=== PATIENT | female | born 1940 | race Hispanic/Latino ===

== ENCOUNTER → 2017-05-25 | Outpatient (CLI) | payer MEDICARE | END | disposition home or self-care (01) | LOC: RAH 08:39 | PROVIDERS: ATTEND Family Medicine | DX: N28.1 Cyst of kidney, acquired (principal); K83.8 Other specified diseases of biliary tract | CPT/HCPCS: 76700; 76856 ==

== ENCOUNTER → 2017-06-11 | Outpatient (CLI) | payer MEDICARE | END | disposition home or self-care (01) | LOC: RAH 11:02 | PROVIDERS: ATTEND Family Medicine | DX: K83.1 Obstruction of bile duct (principal) | CPT/HCPCS: 74181 ==

== ENCOUNTER → 2017-12-24 | Outpatient (CLI) | payer MEDICARE ==
[~2017-12-24] VITALS: Ht 162.6 cm; Wt 82.6 kg
[~2017-12-24] MED LIST: REGADENOSON 0.4 MG/5 ML PF SYG IVP SCH
== END | disposition home or self-care (01) ==
LOC: SHCH 07:47
PROVIDERS: ATTEND Internal Medicine Cardiovascular Disease
DX: R07.9 Chest pain, unspecified (principal); I20.9 Angina pectoris, unspecified
CPT/HCPCS: 78452; 93017; 96374; A9500 ×2; J2785

== ENCOUNTER → 2017-12-28 | Outpatient (CLI) | payer MEDICARE | END | disposition home or self-care (01) | LOC: SHCH 13:30 | PROVIDERS: ATTEND Internal Medicine Cardiovascular Disease | DX: R06.09 Other forms of dyspnea (principal) | CPT/HCPCS: 93306 ==

== ENCOUNTER → 2020-09-01 | Outpatient (CLI) | payer MEDICARE | END | disposition home or self-care (01) | LOC: SHCH 08:48 | PROVIDERS: ATTEND Internal Medicine Cardiovascular Disease | DX: I25.118 Atherosclerotic heart disease of native coronary artery with other forms of angina pectoris (principal) | CPT/HCPCS: 93306; 93356 ==

== ENCOUNTER → 2020-09-03 | Outpatient (CLI) | payer MEDICARE ==
[~2020-09-03] VITALS: Ht 162.6 cm; Wt 65.8 kg
== END | disposition home or self-care (01) ==
LOC: SHCH 08:08
PROVIDERS: ATTEND Internal Medicine Cardiovascular Disease
DX: I25.118 Atherosclerotic heart disease of native coronary artery with other forms of angina pectoris (principal)
CPT/HCPCS: 78452; 93017; 96374; A9500 ×2; J2785

== ENCOUNTER → 2022-05-22 | Outpatient (CLI) | payer MEDICARE | END | disposition home or self-care (01) | LOC: RAH 13:51 | PROVIDERS: ATTEND Family Medicine | DX: E04.2 Nontoxic multinodular goiter (principal) | CPT/HCPCS: 76536 ==

== ENCOUNTER → 2022-08-29 | Outpatient (CLI) | payer MEDICARE | END | disposition home or self-care (01) | LOC: RAH 14:31 | PROVIDERS: ATTEND Family Medicine | DX: E04.9 Nontoxic goiter, unspecified (principal); E04.1 Nontoxic single thyroid nodule | CPT/HCPCS: 76536 ==

== ENCOUNTER → 2023-10-02 | Outpatient (CLI) | payer MEDICARE ==
[~2023-10-02] MED LIST changes: +DONE10TA43 PO; +METO-408 PO; +RAMI2.5C57 PO; -REGADENOSON 0.4 MG/5 ML PF SYG IVP SCH; +SOLI10TA7 PO
== END | disposition home or self-care (01) ==
LOC: RAH 13:50
PROVIDERS: ATTEND Family Medicine
DX: E04.2 Nontoxic multinodular goiter (principal)
CPT/HCPCS: 76536

== ENCOUNTER 2023-10-04 05:56 | Day surgery (SDC) | payer MEDICARE ==
[2023-10-01 10:42] VITALS: BP 141/61; PULSE 50; RESP 16
[2023-10-01 10:44] LABS: BASOPHILS # (AUTO) 0.04 K/uL (0.00-0.20); BASOPHILS % (AUTO) 0.7 % (0.0-5.0); EOSINOPHILS # (AUTO) 0.17 K/uL (0.00-0.70); EOSINOPHILS % (AUTO) 2.8 % (0.0-8.0); HEMATOCRIT 38.9 % (36-48); IMMATURE GRANULOCYTE ABSOLUTE 0.03 K/uL (0-1); LYMPHOCYTES # (AUTO) 1.2 K/uL (1.0-4.8); LYMPHOCYTES % (AUTO) 20.6 % (21.0-51.0); MEAN CORPUSCULAR HEMOGLOBIN 32.2 pg (27.0-33.0); MEAN CORPUSCULAR HGB CONC 32.6 g/dL (32.0-36.0); MEAN CORPUSCULAR VOLUME 98.5 fL (79-99); MONOCYTES # (AUTO) 0.7 K/uL (0.1-1.0); MONOCYTES % (AUTO) 11.1 % (3.0-13.0); NEUTROPHILS # (AUTO) 3.9 K/uL (1.8-7.7); NEUTROPHILS % (AUTO) 64.3 % (40.0-77.0); PLATELET COUNT (AUTO) 198 K/uL (130-400); RED BLOOD CELL COUNT(AUTO) 3.95 MIL/uL (4.00-5.50); RED CELL DISTRIBUTION WIDTH 13.3 % (11.0-15.5)
[2023-10-01 10:47] LABS: APPEARANCE,URINE CLEAR (CLEAR); BILIRUBIN,URINE NEGATIVE (NEGATIVE); COLOR,URINE LIGHT-YELLOW (YELLOW); GLUCOSE, URINE (UA) NEGATIVE (NEGATIVE); KETONES,URINE NEGATIVE (NEGATIVE); LEUKOCYTE ESTERASE ,URINE 250 Leu/uL (NEGATIVE); NITRATE,URINE NEGATIVE (NEGATIVE); PH,URINE 5.5 (5.0-8.0); PROTEIN,URINE NEGATIVE (NEGATIVE); UROBILINOGEN,URINE 0.2 mg/dL (0.2-1.0)
[2023-10-01 10:48] LABS: ADD UA MICROSCOPIC YES
[2023-10-01 10:51] LABS: CREATININE 1.2 mg/dL (0.5-1.0); POTASSIUM 5.1 mmol/L (3.5-5.1)
[2023-10-01 10:52] LABS: BACTERIA,URINE RARE /HPF (None Seen); MUCUS,URINE RARE LPF (None Seen); SQUAMOUS EPITHELIAL CELL,UR RARE /HPF (0-2)
[2023-10-01 10:58] LABS: INR 1.01 (0.85-1.15); PROTHROMBIN TIME 10.9 SEC (9.6-11.6)
[2023-10-01 10:59] LABS: PARTIAL THROMBOPLASTIN TIME 26.7 SEC (26.3-35.5)
[2023-10-01 11:03] LABS: B-TYPE NATRIURETIC PEPTIDE 91 pg/mL (0-100)
[~2023-10-04] VITALS: Ht 154.9 cm; Wt 69.7 kg
[2023-10-04] VITALS (9 sets, daily range): BP systolic 129–158; BP diastolic 45–67; PULSE 47–58; RESP 12–18
[2023-10-04] MEDS: 0.9%NACL 1000ML 1,000 ML IV ONE (07:07)
[2023-10-04] MEDS ORDERED: IOHEXOL 350 MG/ML 100ML INFUS..BTL IV ONE (07:13)
[2023-10-04] MEDS ORDERED: LIDOCAINE HCL 400MG/20ML VIAL ONE (07:13)
[2023-10-04] MEDS ORDERED: BIVALIRUDIN 250 MG/VIAL IV ONE (07:13)
[2023-10-04] MEDS ORDERED: HEPARIN 10,000 UNIT/10ML (1,000 UNIT/ML) VIAL ONE (07:13)
[2023-10-04] MEDS ORDERED: NITROGLYCERIN 50MG VIAL ONE (07:14)
[2023-10-04] MEDS ORDERED: FENTANYL CITRATE PF 50 MCG/1 ML 2ML VIAL ONE (07:36)
[2023-10-04] MEDS ORDERED: MIDAZOLAM HCL 1 MG/ML 2ML VIAL ONE (07:36)
[2023-10-04] MEDS ORDERED: IOHEXOL-350 75 ML VIAL IV ONE (07:47)
[2023-10-04] MEDS ORDERED: GLUCAGON 1MG KIT 1 MG ML IM PRN (08:30)
[2023-10-04] MEDS ORDERED: DEXTROSE 50%-WATER 50 ML DISP.SYRIN IV PRN (08:30)
== END 2023-10-04 12:20 | disposition home or self-care (01) ==
LOC: DAH 05:56
PROVIDERS: ATTEND Internal Medicine Cardiovascular Disease
DX: I25.118 Atherosclerotic heart disease of native coronary artery with other forms of angina pectoris (principal); I34.0 Nonrheumatic mitral (valve) insufficiency; I10 Essential (primary) hypertension; F32.A Depression, unspecified; E78.5 Hyperlipidemia, unspecified; I77.9 Disorder of arteries and arterioles, unspecified; R01.1 Cardiac murmur, unspecified; Z79.01 Long term (current) use of anticoagulants; Z79.82 Long term (current) use of aspirin; Z79.899 Other long term (current) drug therapy
CPT/HCPCS: 80048; 83880; 85025; 85610; 85730; 87086; 81001; 36415; 71045; 93005; 93460; C1894 ×3; C1760 ×2; J3010; J3490 ×2; J7030; J1644 ×2; J2250; Q9967 ×2; A4215; A4222; A4221; A4663; A4216; A4606; A4223 ×3; 99156; 99157; J0583

== ENCOUNTER 2023-12-22 07:51 | Emergency (ER) | payer MEDICARE ==
[~2023-12-22] VITALS: Ht 165.1 cm; Wt 69.9 kg
[2023-12-22 07:58] VITALS: TEMP 97.4
[2023-12-22] MEDS: ketOROlac 15MG/ML VIAL (15MG/ML) IM ONE (08:39)
[2023-12-22] MEDS ORDERED: NAPR-1196 PO (09:19)
[2023-12-22 10:45] VITALS: BP 169/65; PULSE 68; RESP 17; O2SAT 99
== END 2023-12-22 10:20 | disposition home or self-care (01) ==
LOC: EDH 07:51
DX: S52.134A Nondisplaced fracture of neck of right radius, initial encounter for closed fracture (principal); Z79.899 Other long term (current) drug therapy; W18.39XA Other fall on same level, initial encounter; Y93.89 Activity, other specified; Y92.89 Other specified places as the place of occurrence of the external cause; Y99.8 Other external cause status
CPT/HCPCS: 99284; 29105; 73070; 96372; J1885

== ENCOUNTER → 2024-04-08 | Emergency (ER) | payer MEDICARE ==
[~2024-04-08] VITALS: Ht 165.1 cm; Wt 72.6 kg
[~2024-04-08] MED LIST changes: +NAPR-1196 PO
--- NOTE | 2024-04-08 15:21 | ERN ---
ED Note History of Present Illness Stated Complaint: PAIN ON LEFT SIDE WAIST Chief Complaint: Flank Pain Time Seen by MD: 14:43 Dictation: PATIENT IS A 83-YEAR-OLD FEMALE HERE WITH LEFT LUMBAR PAIN SHE HAS HAD FOR 3-4 DAYS. NO FEVER NO CHILLS NO NAUSEA VOMITING NO REFERRED PAIN DOWN HER LEG OR TO HER LOWER ABDOMEN. DENIES ANY HISTORY OF KIDNEY STONES BACK INJURIES OR SURGERIES. SHE STATES THE PAIN HAS BEEN LOCALIZED TO THE LUMBAR SPINE SINCE AND IS ABLE TO PINPOINT. Allergies: Coded Allergies: No Known Drug Allergies (Unverified Allergy, Unknown, 12/21/17) Home Meds Active Scripts Naproxen (Naproxen) 250 Mg Tablet, 1 TAB PO BID for pain for 15 Days, #30 TAB 0 Refills Prov:LETI GALLOWAY MD 12/22/23 Reported Medications Metoprolol Succinate (Metoprolol Succinate) 25 Mg Tab.er.24h, 1 TAB PO DAILY 10/02/23 Donepezil HCl (Donepezil HCl) 10 Mg Tablet, 1 TAB PO DAILY 10/02/23 Solifenacin Succinate (Solifenacin Succinate) 10 Mg Tablet, 1 TAB PO HS 10/02/23 Ramipril (Ramipril) 2.5 Mg Capsule, 1 CAP PO DAILY 10/02/23 Past Medical History Past Medical History: No Pertinent History, UTI Additional Past Medical Hx: DENIES PMHX Surgical History: None Surgical History Other: DENIES PSHX PSYCH History: no pertinent psych hx History: Not Applicable RN Note Reviewed/Agreed w/PFSH: Yes Review of System Dictation CONSTITUTIONAL: NEGATIVE EXCEPT FOR HPI HEAD/FACE: NEGATIVE EXCEPT FOR HPI EENT: NEGATIVE EXCEPT FOR HPI RESPIRATORY: NEGATIVE EXCEPT FOR HPI GASTROINTESTINAL/ABDOMINAL: NEGATIVE EXCEPT FOR HPI GENITOURINARY: NEGATIVE EXCEPT FOR HPI MUSCULOSKELETAL: NEGATIVE EXCEPT FOR HPI LEFT LUMBAR PAIN INTEGUMENTARY: NEGATIVE EXCEPT FOR HPI NEUROLOGICAL/PSYCH: NEGATIVE EXCEPT FOR HPI HEMATOLOGIC/LYMPHATIC: NEGATIVE EXCEPT FOR HPI ALL SYSTEMS NEGATIVE, EXCEPT NOTED ABOVE. 13 POINT REVIEW OF SYSTEMS ASSESSED AND ALL NEGATIVE EXCEPT FOR ABOVE. Initial Vital Sign VS Vital Signs Date Time Temp Pulse Resp B/P (MAP) Pulse Ox O2 Delivery O2 Flow Rate FiO2 04/08/24 14:57 97.9 65 16 178/89 96 Room Air 0 04/08/24 16:03 21 Physical Exam Dictation VITAL SIGNS REVIEWED GENERAL APPEARANCE: ALERT, ORIENTED X 3, MILD ACUTE DISTRESS, WELL DEVELOPED, NOURISHED. PATIENT STATES SHE HAS TAKEN NOTHING PRIOR TO ARRIVAL FOR PAIN SINCE THE ONSET HEAD AND FACE: NON-TRAUMATIC. EYES: PERRL, PINK CONJUNCTIVAS, EYELID NO TRAUMA, ANTERIOR CHAMBER WITH ARCUS SENILIS. EARS: PINNAS INTACT AND NO SIGNS OF TRAUMA OR ERYTHEMA EAR CANALS CLEAR AND NO DISCHARGE TM NO ERYTHEMA NOSE: NO DISCHARGE, NO BLEEDING. OROPHARYNX: MOUTH NORMAL, TONGUE PINK, PHARYNX CLEAR,NO ERYTHEMA, TONSILS NO EXUDATES, NO ABSCESSES NOTED, MUCOUS MEMBRANE MOIST NECK: SUPPLE, NON-TENDER, NO THYROMEGALY, NO MASSES, NO JVD, NO BRUITS BREAST:DEFERRED CHEST:NO TENDERNESS, NO CREPITUS, NO PARADOXICAL MOVEMENT, NO RETRACTIONS LUNGS:CLEAR, WELL-VENTILATED, SYMMETRIC, NO RALES, NO WHEEZING, NO RHONCHI, NO STRIDOR, GOOD BREATH SOUNDS BILATERALLY HEART: REGULAR RATE, REGULAR RHYTHM, NO MURMUR, NO GALLOPS VASCULAR: NO PERIPHERAL EDEMA, ABDOMEN: SOFT, POSITIVE BOWEL SOUNDS, NONDISTENDED, NO GUARDING, NONTENDER, NO REBOUND, NO MASSES NO HEPATOMEGALY, NO SPLENOMEGALY, NO ROMERO'S SIGN, NO HERNIAS. RECTAL: DEFERRED GENITAL: DEFERRED NEUROLOGICAL: NORMAL SPEECH, MOTOR FUNCTION INTACT, SENSORY FUNCTION INTACT MUSCULOSKELETAL: NECK NONTENDER, FULL RANGE OF MOTION, LEFT LUMBAR PAIN WITH SPASMS NOTED ON PALPATION, FULL RANGE OF MOTION, NEGATIVE CVAT NEGATIVE STRAIGHT LEG RAISE 10 DEGREE EXTREMITIES: NONTENDER, FULL RANGE OF MOTION SKIN: COLOR PINK, DRY, NO TURGOR, NO RASH, NO LACERATIONS, NO ABRASIONS, NO CONTUSIONS. LYMPHATIC: DEFERRED Results (Laboratory/Radiology) Laboratory/Radiology Laboratory Tests Test 04/08/24 15:23 Urine Color COLORLESS (YELLOW) Urine Appearance CLEAR (CLEAR) Urine pH 5.5 (5.0-8.0) Urine Specific Crowley 1.005 (1.001-1.031) Urine Protein NEGATIVE mg/dL (NEGATIVE) Urine Glucose (UA) NEGATIVE mg/dL (NEGATIVE) Urine Ketones NEGATIVE mg/dL (NEGATIVE) Urine Occult Blood NEGATIVE (NEGATIVE) Urine Nitrate NEGATIVE (NEGATIVE) Urine Bilirubin NEGATIVE mg/dL (NEGATIVE) Urine Urobilinogen 0.2 mg/dL (0.2-1.0) Urine Leukocyte Esterase 75 Robi/uL (NEGATIVE) H Urine RBC 0-1 /HPF (0-1) Urine WBC 2-5 /HPF (0-1) H Urine WBC Clumps (Auto) RARE /HPF (0-1) Urine Non-Squamous Epithelial Cells <1 /HPF (0-2) Urine Bacteria RARE /HPF (None Seen) Labs Reviewed?: Yes ED Course ED Course Orders Procedure Category Date Status Time Urinalysis Profile LAB 04/08/24 Complete 15:19 Acetaminophen 500mg PHA 04/08/24 Complete Tab (Tylenol 500mg T 15:30 Dexamethasone 4mg/Ml PHA 04/08/24 Complete 1ml Vial (Dexametha 15:30 Dexamethasone 10mg/Ml PHA 04/08/24 Complete 1ml Vial (Dexameth 15:54 Culture Urine MELISSA 04/08/24 In Process 16:14 Current Medications Medications (Trade) Dose Ordered Sig/Diego Route PRN Reason Start Time Stop Time Status Last Admin Dose Admin Acetaminophen (TYLenol 500MG TAB) 1,000 mg ONCE ONCE PO 04/08/24 15:30 04/08/24 15:31 DC 04/08/24 15:59 Dexamethasone Sodium Phosphate (dexaMETHasone 4MG/ML 1ML VIAL) 8 mg ONCE ONCE IM 04/08/24 15:30 04/08/24 15:31 DC Dexamethasone Sodium Phosphate (dexaMETHasone 10MG/ML 1ML VIAL) 10 mg STK-MED ONCE .ROUTE 04/08/24 15:54 04/08/24 15:55 DC 04/08/24 16:02 Vital Signs Date Time Temp Pulse Resp B/P (MAP) Pulse Ox O2 Delivery O2 Flow Rate FiO2 04/08/24 16:03 98.1 71 16 176/85 98 Room Air* 0 21 04/08/24 14:57 97.9 65 16 178/89 96 Room Air 0 Medical Decision Making MDM MEDICAL DECISION-MAKING BASED ON URINALYSIS AND RULING OUT STONE VERSUS LUMBAR STRAI UA NEGATIVE 1921, CALLED PATIENT FROM THE WAITING ROOM AND NO ANSWER X2. DX & DISP Disposition: AMA Departure Impression: Primary Impression: Acute lumbar myofascial strain Condition: Stable Referrals: SELF,REFERRAL (PCP) Time of Disposition: 19:21 I have reviewed the case, and I agree with, Diagnosis and Plan CARMELINA CARBALLO HV[employer] INSTRUCTOR Apr 08, 2024 15:21
[2024-04-08] MEDS: acetaMINOPHEN 500 MG TABLET PO ONE (15:59)
[2024-04-08] MEDS: dexaMETHasone SOD PHOSPHATE 10MG/ML 1ML VIAL ONE (16:02)
[2024-04-08 16:03] VITALS: BP 176/85; PULSE 71; RESP 16; TEMP 98.1; O2SAT 98
[2024-04-08] MEDS: dexaMETHasone SOD PHOSPHATE 4 MG/ML 1ML VIAL IM ONE (16:03)
[2024-04-08 16:04] LABS: APPEARANCE,URINE CLEAR (CLEAR); BILIRUBIN,URINE NEGATIVE (NEGATIVE); COLOR,URINE COLORLESS (YELLOW); GLUCOSE, URINE (UA) NEGATIVE (NEGATIVE); KETONES,URINE NEGATIVE (NEGATIVE); LEUKOCYTE ESTERASE ,URINE 75 Leu/uL (NEGATIVE); NITRATE,URINE NEGATIVE (NEGATIVE); OCCULT BLOOD,URINE NEGATIVE (NEGATIVE); PH,URINE 5.5 (5.0-8.0); PROTEIN,URINE NEGATIVE (NEGATIVE); UROBILINOGEN,URINE 0.2 mg/dL (0.2-1.0)
[2024-04-08 16:11] LABS: ADD UA MICROSCOPIC YES
[2024-04-08 16:19] LABS: BACTERIA,URINE RARE /HPF (None Seen); MUCUS,URINE RARE LPF (None Seen); NON-SQUAMOUS EPITHELIAL CELL <1 /HPF (0-2); RBC,URINE 0-1 /HPF (0-1); WBC CLUMP RARE /HPF (0-1)
--- NOTE | 2024-04-08 19:16 | NUR ---
CALLED FOR PT IN LOBBY TO MOVE TO FT; NO RESPONSE; PT NOT FOUND IN LOBBY.
--- NOTE | 2024-04-08 19:22 | NUR ---
CALLED FOR PT TO MOVE TO FT IN LOBBY. NO RESPONSE AT THIS TIME. NO PT FOUND IN LOBBY AT THIS TIME.
== END ==
LOC: EDH 14:40
DX: S39.012A Strain of muscle, fascia and tendon of lower back, initial encounter (principal); Z79.899 Other long term (current) drug therapy; X58.XXXA Exposure to other specified factors, initial encounter; Y93.89 Activity, other specified; Y92.89 Other specified places as the place of occurrence of the external cause; Y99.8 Other external cause status
CPT/HCPCS: 99283; 87086; 81001; 96372; J1100; 96374